=== PATIENT | male | born 1960 | race Caucasian/White ===

== ENCOUNTER 2020-05-04 07:59 | Day surgery (SDC) | payer OTHER ==
[2020-05-02 09:56] VITALS: BMI 30.4
[~2020-05-04 07:59] MED LIST: LACTATED RINGERS 1,000 ML IV SCH; LIDOCAINE 1% (10MG/ML) FOR IV START INTRADERMA PRN
[2020-05-04 08:26] VITALS: TEMP 98
[2020-05-04] MEDS ORDERED: PROPOFOL 10 MG/ML 20 ML VIAL IV ONE (09:02)
--- NOTE | 2020-05-04 09:25 | P.PCN ---
Date of Procedure: 05/04/20 Procedure(s) Performed: BRIEF HISTORY: Patient is a 59-year-old pleasant white male scheduled for an elective colonoscopy as a part of screening for colorectal neoplasia. Last colonoscopy was 12 years ago. PROCEDURE PERFORMED: Colonoscopy with snare polypectomy and biopsy. PREOPERATIVE DIAGNOSIS: Screening for colon cancer. IV sedation per Anesthesia. PROCEDURE: After informed consent was obtained, the patient, was brought into the endoscopy unit. IV sedation was administered by Anesthesia under continuous monitoring. Digital rectal examination was normal. Initially the Olympus CF-160 flexible video colonoscope was then inserted in the rectum, gradually advanced into the cecum without any difficulty. Careful examination was performed as the scope was gradually being withdrawn. Ileocecal valve and the appendiceal orifice were visualized and appeared normal. Prep was excellent. In the base of the cecum there was a 3 cm broad-based polypoid lesion identified and part of the polyp was removed. Subsequently there was an ulceration noted on the polyp behind a fold and hence the polyp could not be completely removed and multiple biopsies were performed to rule out malignancy. In the ascending colon there was a 5 mm polyp that was removed by snare polypectomy. Rest of the transverse colon, descending colon, sigmoid colon, and rectum appeared normal. Retroflexion was performed in the rectum and no lesions were seen. The patient tolerated the procedure well. IMPRESSION: 3 cm broad-based polypoid lesion with central ulceration in the base of the cecum suspicious for malignancy, status post partial snare polypectomy followed by biopsy 5 mm ascending colon polyp status post polypectomy RECOMMENDATIONS: Findings of this examination were discussed with the patient as well as his family. He was advised to follow with the biopsy results. He will be seen in office in 1 week to discuss biopsy results and plans accordingly.
[2020-05-04 09:27] VITALS: RESP 17
[2020-05-04 09:35] VITALS: BP 130/86; PULSE 74
== END 2020-05-04 09:57 | disposition home or self-care (01) ==
LOC: ORWHC2ENDO 07:59
PROVIDERS: ATTEND Internal Medicine Gastroenterology
DX: Z12.11 Encounter for screening for malignant neoplasm of colon (principal); C18.0 Malignant neoplasm of cecum; K63.5 Polyp of colon; K63.3 Ulcer of intestine; E11.9 Type 2 diabetes mellitus without complications; I10 Essential (primary) hypertension; E78.5 Hyperlipidemia, unspecified; Z88.8 Allergy status to other drugs, medicaments and biological substances; Z79.899 Other long term (current) drug therapy; Z98.890 Other specified postprocedural states; Z87.898 Personal history of other specified conditions
CPT/HCPCS: 88305; 45380; 45385; J2704

== ENCOUNTER → 2020-05-10 | Outpatient (CLI) | payer OTHER ==
--- NOTE | 2020-05-10 14:31 | CT ---
EXAMINATION TYPE: CT ChestAbdPelvis w con DATE OF EXAM: 05/10/2020 COMPARISON: None HISTORY: 59-year-old male Adenocarcinoma of the cecum TECHNIQUE: Contiguous axial scanning of the chest, abdomen, and pelvis performed with IV Contrast, pa tient injected with 100 mL of Isovue 300. Delayed images through the kidneys were obtained. Coronal/s agittal reconstructions performed. CT DLP: 1145.6 mGycm Automated exposure control for dose reduction was used. FINDINGS: CHEST: The heart is upper limits of normal size without pericardial effusion. Aorta normal caliber with conventional arch vessel branching anatomy. Scattered nonenlarged mediastinal lymph nodes. No thoracic lymphadenopathy by CT size criteria. Lungs show no consolidation or pleural effusion. No suspicious pulmonary nodules are identified. ABDOMEN: Small hiatal hernia. Tiny 7 mm posterior right liver lobe hypodensity is nonspecific, axial image 55. No other focal liver lesion. Portal venous system is patent. No biliary ductal dilatation. Gallbladder, adrenal glands, right kidney, spleen with inferior splenule, and pancreas appear within normal limits. Parapelvic cysts within the left kidney measuring up to 2.2 cm. No dilated small bowel, free fluid, free air. Normal appendix. There is soft tissue thickening measuring approximately 2.8 cm on sagittal image 18 at the inferior c ecum near the base of the appendix and extending towards the ileocecal valve region. No significant s tool burden. Oral contrast progressed to the mid rectum. Moderate stool within the rectum. Mild diver ticular change along the proximal sigmoid. No pericolonic inflammatory change. There is a single adjacent 7 mm right lower quadrant mesenteric lymph node, axial image 82 and yancey l image 46 located posterior and inferior to the cecum. Otherwise, no mesenteric or retroperitoneal l ymphadenopathy seen. PELVIS: Bladder urine distended. Prostate gland is enlarged at 5.0 cm wide. No abnormal fluid collection in t he pelvis or pelvic lymphadenopathy. BONES: Degenerative changes right SI joint. Transitional lumbosacral segment. Severe degenerative disc disea se L4-L5. Additional moderate to severe degenerative disc disease T12-L1 and L1-L2. Grade 1 retrolist hesis at L1-L2. Anterior endplate spondylosis midthoracic spine. No osseous destructive process seen. IMPRESSION: 1. AREA OF 2.8 CM MURAL BASED THICKENING AT THE INFERIOR CECUM NEAR THE BASE OF THE APPENDIX AND EXTE NDING TOWARD THE ILEOCECAL VALVE REGION. FINDINGS LIKELY CORRESPOND TO THE PATIENT'S BIOPSY PROVEN CE RUBIO CARCINOMA. 2. THERE IS A SINGLE ADJACENT 7 MM NONSPECIFIC RIGHT LOWER QUADRANT MESENTERIC LYMPH NODE LOCATED POS TERIOR AND INFERIOR TO THE CECUM. THIS MAY BE REACTIVE. 3. ADDITIONAL NONSPECIFIC TINY, INDETERMINATE, 7 MM HYPODENSE LESION POSTERIOR RIGHT LIVER LOBE. FOLL OW-UP RECOMMENDED.
== END | disposition home or self-care (01) ==
LOC: RADCTMAIN 10:18
PROVIDERS: ATTEND Internal Medicine Gastroenterology
DX: C18.0 Malignant neoplasm of cecum (principal); R59.0 Localized enlarged lymph nodes
CPT/HCPCS: 71260; 74177; Q9967

== ENCOUNTER → 2020-06-04 | Outpatient (CLI) | payer OTHER ==
[2020-06-04 08:45] LABS: HCT 45.6 % (39.0-53.0); HGB 14.9 gm/dL (13.0-17.5); MCH 28.6 pg (25.0-35.0); MCHC 32.7 g/dL (31.0-37.0); MCV 87.4 fL (80.0-100.0); Mean Platelet Volume 6.6; Platelet Count 190 k/uL (150-450); RBC 5.22 m/uL (4.30-5.90); RDW 12.7 % (11.5-15.5); WBC 5.2 k/uL (3.8-10.6)
[2020-06-04 08:56] LABS: Potassium 3.9 mmol/L (3.5-5.1)
== END | disposition home or self-care (01) ==
LOC: LABPAT 07:48
PROVIDERS: ATTEND Surgery
DX: Z01.818 Encounter for other preprocedural examination (principal); C18.9 Malignant neoplasm of colon, unspecified
CPT/HCPCS: 36415; 80051; 85027

== ENCOUNTER 2020-06-11 09:49 | Inpatient (IN) | payer OTHER ==
[2020-06-07 15:39] VITALS: BMI 28.8
[~2020-06-11 09:49] MED LIST changes: +ACETAMINOPHEN TAB 500 MG TAB PO ONE; +DEXAMETHASONE SOD PHOSPHATE 10 MG/ML 1 ML VIAL IV ONE; +HEPARIN SODIUM,PORCINE 5,000 UNIT/ML 1 ML VIAL SQ ONE; +HYDROmorphone 0.5 MG/0.5 ML SYRINGE IVP PRN; -LACTATED RINGERS 1,000 ML IV SCH; -LIDOCAINE 1% (10MG/ML) FOR IV START INTRADERMA PRN; +SCOPOLAMINE 1.5MG/72HR PATCH TRANSDERM ONE; +metroNIDAZOLE-NS PMX 500 MG in SALINE 1 100ML.BAG IVPB ONE
[2020-06-11] MEDS ORDERED: LIDOCAINE 1% (10MG/ML) FOR IV START INTRADERMA ONE (10:45)
[2020-06-11] MEDS ORDERED: ONDANSETRON 4 MG/2 ML VIAL ONE ×2 (10:52→11:49)
[2020-06-11] MEDS ORDERED: DEXAMETHASONE SOD PHOSPHATE 10 MG/ML 1 ML VIAL IV ONE (10:59)
[2020-06-11] MEDS ORDERED: ONDANSETRON 4 MG/2 ML VIAL IVP ONE (11:00)
[2020-06-11] MEDS ORDERED: ALVIMOPAN 12 MG CAPSULE PO ONE (11:14)
[2020-06-11] MEDS ORDERED: LIDOCAINE 1% INJ 10MG/ML (20 ML MDV) ONE (11:49)
[2020-06-11] MEDS ORDERED: ePHEDrine SULFATE/0.9% NACL/PF 50 MG/5 ML SYRINGE IV ONE (11:49)
[2020-06-11] MEDS ORDERED: PROPOFOL 10 MG/ML 20 ML VIAL IV ONE (11:49)
[2020-06-11] MEDS ORDERED: WATER FOR INJECTION, STERILE 10 ML VIAL IV ONE (11:49)
[2020-06-11] MEDS ORDERED: PHENYLEPHRINE-0.9% NACL SYG 1 MG/10 ML SYRINGE ONE (11:49)
[2020-06-11] MEDS ORDERED: ROCURONIUM BROMIDE 10 MG/ML 5 ML VIAL IV ONE (11:49)
[2020-06-11] MEDS ORDERED: NEOSTIGMINE 1 MG/ML 10 ML VIAL ONE (11:49)
[2020-06-11] MEDS ORDERED: fentaNYL (PF) 50 MCG/ML 2 ML AMP ONE (11:49)
[2020-06-11] MEDS ORDERED: MIDAZOLAM 2 MG/2 ML VIAL ONE (11:49)
[2020-06-11] MEDS ORDERED: SUCCINYLCHOLINE CHLORIDE 100 MG/5 ML SYR IV ONE (11:49)
[2020-06-11] MEDS ORDERED: GLYCOPYRROLATE 0.2 MG/ML 2 ML VIAL ONE (11:49)
[2020-06-11] MEDS: LACTATED RINGERS 1,000 ML IV SCH (11:51)
[2020-06-11] MEDS ORDERED: BUPIVACAINE (PF) 0.25% 30 ML VIAL SQ ONE ×2 (12:19)
[2020-06-11] MEDS ORDERED: LACTATED RINGERS 1,000 ML IV ONE ×2 (13:12→15:23)
[2020-06-11] MEDS ORDERED: METOCLOPRAMIDE 5 MG/ML 2 ML VIAL IVP PRN (15:49)
[2020-06-11] MEDS ORDERED: ONDANSETRON 4 MG/2 ML VIAL IVP PRN (15:49)
--- NOTE | 2020-06-11 15:55 | P.OP ---
Date of Procedure: 06/11/20 Procedure(s) Performed: PREOPERATIVE DIAGNOSIS: Right-sided colon cancer POSTOPERATIVE DIAGNOSIS: Same PROCEDURE: Laparoscopic da Vic assisted right colectomy with intracorporeal anastomosis SURGEON: Lamar EBL: Minimal see anesthesia records ANESTHESIA: General COMPLICATIONS: None OPERATIVE PROCEDURE: Patient was placed on the operating table in the supine position. The patient was placed under general anesthesia. A Cobb catheter was placed. The patient's arms were tucked. The abdomen was prepped and draped in usual sterile fashion. A small Pfannenstiel incision was created in the midline. The subcutaneous fat and fascia were divided horizontally using electrocautery. The rectus muscle was divided vertically using blunt dissection and entrance into the peritoneal cavity occurred. The Galdino lap cap was placed. Through the GelPort adapter of the Galdino a 12 mm robotic port and a 12 mm assist port were placed. Full insufflation took place to 15 mmHg. 3 additional trochars were placed for the robot a 12 mm in the left subcostal a 8 mm in the left lateral infraumbilical and a 8 mm trocar in the left lower quadrant location. The patient was placed in Trendelenburg right side up. The liver was free of any evidence of distant metastasis. The retroperitoneum was evaluated. The ileocolic pedicle was identified by retracting the cecum anteriorly and laterally. Careful dissection using both blunt dissection and cautery took place in the retroperitoneum. The duodenum was quickly identified and this was protected throughout the remainder of the procedure. Our dissection took place laterally and circumferentially around the ileocolic pedicle. The ileocolic pedicle was divided using a 60 white load stapler. Dissection in the retroperitoneum and took place bluntly. Once we reached the lateral abdomen from our retroperitoneal approach the ileum cecum and ascending colon were mobilized by incising the lateral peritoneal attachments. We entered into a retroperitoneal dissection plane. The ureter was visualized and protected throughout the case. The hepatic flexure was mobilized in a similar fashion although in that location we started using the vessel sealer. The gastrocolic omentum was dissected away from the proximal transverse colon. Once we were able to visualize the transverse colon and hepatic flexure well the transverse colon was divided using a blue load 60 stapler. The mesentery of the transverse colon was then divided using the vessel sealer as well. The small bowel was divided as well using a robotic blue load stapler. At this point our specimen was free and placed in the left upper quadrant. The terminal ileum was brought in an isoperistaltic manner adjacent to the transverse colon. 2 separate 3-0 GI silk stay sutures were placed proximally and distally. Small enterotomy and colotomy took place. At that time stapler was fired along the antimesenteric border of both the small bowel and the colon. A single firing of the 60 mm blue load stapler was utilized. We had an adequate opening between the small bowel and colon at that point. The defect was closed transversely using a running full-thickness 20V lock suture. Once the defect was closed I used a running horizontal mattress Lambert suture along the length of the staple line in order to imbricate that area. The previously placed 3-0 GI silk sutures acted as stay sutures proximally and distally. The specimen was grasped through the Galdino assist port and the pneumoperitoneum was evacuated. The specimen was able to be retrieved quite easily. The fascia was closed using a running 0 Vicryl suture. The 12 mm trocar site fascia was closed using a [id number] 0 Vicryl suture. The subcutaneous tissues were irrigated with saline. The subcutaneous tissues were closed using 3-0 Vicryl sutures. The skin at all locations were closed using 4-0 Monocryl sutures. Dermabond was then utilized. Sterile dressings were applied. DISPOSITION: Stable to recovery room
[2020-06-11] MEDS ORDERED: HYDROmorphone 1 MG/ML 1 ML SYRINGE IVP PRN (17:33)
[2020-06-11] MEDS ORDERED: HYDROcodone/APAP 5-325MG 1 EACH TAB PO PRN (17:33)
[2020-06-11] MEDS: HEPARIN SODIUM,PORCINE 5,000 UNIT/ML 1 ML VIAL SQ SCH (17:56)
[2020-06-11] MEDS: D5-0.45% NACL WITH KCL 20MEQ/L 1,000 ML IV SCH (18:00)
[2020-06-11] MEDS: ACETAMINOPHEN IV (For NPO) 1,000 MG in EMPTY BAG 1 BAG IVPB SCH (19:20)
[2020-06-11 20:28] LABS: Basophils % (A) 0 %; Eosinophils % (A) 0 %; HGB 15.1 gm/dL (13.0-17.5); Lymphocytes # (A) 0.8 k/uL (1.0-4.8); Lymphocytes % (A) 7 %; MCH 28.7 pg (25.0-35.0); MCHC 32.9 g/dL (31.0-37.0); MCV 87.3 fL (80.0-100.0); Mean Platelet Volume 6.7; Monocytes # (A) 0.4 k/uL (0-1.0); Monocytes % (A) 4 %; Neutrophils # (A) 9.3 k/uL (1.3-7.7); Neutrophils % (A) 88 %; Platelet Count 207 k/uL (150-450); RBC 5.27 m/uL (4.30-5.90); RDW 12.7 % (11.5-15.5); WBC 10.5 k/uL (3.8-10.6)
[2020-06-11 20:37] LABS: Calcium 8.6 mg/dL (8.4-10.2); Potassium 3.9 mmol/L (3.5-5.1)
[2020-06-11] MEDS: FAMOTIDINE 20 MG/2 ML VIAL IV SCH (20:57)
[2020-06-11] MEDS: ALVIMOPAN 12 MG CAPSULE PO SCH (20:57)
[2020-06-11] MEDS: METOPROLOL TARTRATE 50 MG TAB PO SCH (20:57)
[2020-06-11] MEDS: MONTELUKAST 10 MG TAB PO SCH (20:57)
[2020-06-11] MEDS: ATORVASTATIN 10 MG TAB PO SCH (20:57)
[2020-06-11] MEDS ORDERED: amLODIPine 5 MG TAB PO SCH (21:00)
--- NOTE | 2020-06-11 22:14 | P.CONS ---
History of Present Illness - Reason for Consult Consult date: 06/11/20 medical management Requesting physician: Miguel Newton - Chief Complaint abdominal surgery - History of Present Illness Consultation: This is a 60-year-old patient of Dr. Jacob. Was chronic stable medical conditions include hyperlipidemia, hypertension, seasonal ALLERGIES. On May 04 patient underwent colonoscopy by Dr. Natali Yang. Found 03 cm broad-based polypoid lesion with central ulceration the base of the cecum. Snare polypectomy was carried out. Pathology came back showing superficially invasive adenocarcinoma in a tubular adenoma. Computed tomography scan of the abdomen which is pelvis showed some nonspecific findings and arthritic finding speech in the lumbosacral spine. Large prostate. Today patient underwent right hemicolectomy. Patient's currently on clear liquids. Pain is controlled. Review of systems: GEN.: None EYES: None HEENT: None NECK: None RESPIRATORY: None CARDIOVASCULAR: None GASTROINTESTINAL: As above] GENITOURINARY: None MUSCULOSKELETAL: None LYMPHATICS: None HEMATOLOGICAL: None PSYCHIATRY: None NEUROLOGICAL: None Past medical history to include: Malignant polyp invasive adenocarcinoma, obstructive colon, hypertension, hyperlipidemia, seasonal ALLERGIES. Social history: . 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 Alcohol occasional. No smoking Physical examination: VITAL SIGNS: 98.1, 86, 18, 1:30 dose any 2, 77% on 2 L GENERAL: [BMI 29.1, sitting on bed, comfortable. EYES: Pupils equal. Conjunctiva normal. HEENT: External appearance of nose and ears normal, oral cavity grossly normal. NECK: JVD not raised; masses not palpable. HEART: First and second heart sounds are normal; no edema. LUNGS: Respiratory rate normal; clear to auscultation. ABDOMEN: Soft, tender, dressing in place, liver spleen not palpable, no masses palpable. PSYCH: Alert and oriented x3; mood and affect normal. NEUROLOGICAL: Cranial nerves grossly intact; no facial asymmetry, power and sensation grossly intact. LYMPHATICS: No lymph nodes palpable in the axilla and neck INVESTIGATIONS, reviewed in the clinical context: White count 10.5 hemoglobin 13.1 potassium 3.9 creatinine 1.21 Assessment: -Right colonic polyp, invasive adenocarcinoma in in a tubular adenoma. No resulting in right hemicolectomy -Hyperlipidemia -Essential hypertension -Seasonal ALLERGIES Plan: Home medications and resume. Patient to clear liquid diet. Activity as tolerated. Care was discussed with the patient question also. Venodyne boots. Thank you Dr. Vergara Past Medical History Past Medical History: Cancer, Hyperlipidemia, Hypertension, Osteoarthritis (OA) Additional Past Medical History / Comment(s): SEASONAL ALLERGIES, COLON CANCER History of Any Multi-Drug Resistant Organisms: None Reported Past Surgical History: Tonsillectomy Additional Past Surgical History / Comment(s): COLONOSCOPY, right colectomy Past Anesthesia/Blood Transfusion Reactions: Motion Sickness Past Psychological History: No Psychological Hx Reported Smoking Status: Former smoker Past Alcohol Use History: Occasional Additional Past Alcohol Use History / Comment(s): STARTED SMOKING AT AGE 16 QUIT SMOKING AT AGE 21 SMOKED 1PPD Past Drug Use History: None Reported - Past Family History Mother Family Medical History: Cancer Additional Family Medical History / Comment(s): BREAST CANCER Medications and Allergies Home Medications Medication Instructions Recorded Confirmed Type Losartan Potassium [Cozaar] 100 mg PO DAILY 05/02/20 06/11/20 History Lovastatin [Mevacor] 40 mg PO HS 05/02/20 06/07/20 History Metoprolol Tartrate [Lopressor] 50 mg PO BID 05/02/20 06/11/20 History Montelukast [Singulair] 10 mg PO HS 05/02/20 06/07/20 History amLODIPine [Norvasc] 5 mg PO BID 05/02/20 06/11/20 History Fluticasone Nasal [place] [Flonase 1 - 2 spray EA NOSTRIL DAILY PRN 06/07/20 06/11/20 History Nasal [place]] Allergies Allergy/AdvReac Type Severity Reaction Status Date / Time No Known Allergies Allergy Verified 06/11/20 10:42 Physical Exam Vitals: Vital Signs Temp Pulse Pulse Pulse Resp BP Pulse Ox 06/11/20 19:16 16 06/11/20 18:57 98.1 F 86 16 138/72 97 06/11/20 18:05 95 126/77 98 06/11/20 17:49 81 125/74 94 L 06/11/20 17:34 78 128/75 98 06/11/20 17:19 84 125/77 95 06/11/20 17:00 71 14 126/71 97 06/11/20 16:45 76 14 129/76 95 06/11/20 16:30 77 14 124/76 97 06/11/20 16:15 78 18 121/74 96 06/11/20 16:05 81 16 137/84 97 06/11/20 15:50 98.1 F 71 16 105/68 99 06/11/20 10:33 137/88 06/11/20 10:32 97.7 F 65 17 97 Intake and Output 06/11/20 06/11/20 06/11/20 06:59 14:59 22:59 Intake Total 2150 200 Output Total 1450 Balance 2150 -1250 Intake: IV 2150 200 Output: Urine 1420 Estimated Blood Loss 30 Other: Voiding Method Indwelling Catheter Weight 86.7 kg 86.7 kg Results CBC & Chem 7: 06/11/20 20:14 06/11/20 20:14 Labs: Abnormal Lab Results - Last 24 Hours (Table) 06/11/20 06/11/20 Range/Units 20:14 20:14 Neutrophils # 9.3 H (1.3-7.7) k/uL Lymphocytes # 0.8 L (1.0-4.8) k/uL Sodium 135 L (137-145) mmol/L Glucose 157 H (74-99) mg/dL
[2020-06-12] MEDS: ACETAMINOPHEN IV (For NPO) 1,000 MG in EMPTY BAG 1 BAG IVPB SCH ×3 (00:49→12:23)
[2020-06-12] MEDS: HEPARIN SODIUM,PORCINE 5,000 UNIT/ML 1 ML VIAL SQ SCH ×4 (00:50→23:25)
[2020-06-12] MEDS: D5-0.45% NACL WITH KCL 20MEQ/L 1,000 ML IV SCH ×3 (00:50→19:43)
[2020-06-12] MEDS: LACTATED RINGERS 1,000 ML IV SCH (02:57)
[2020-06-12] MEDS: METOPROLOL TARTRATE 50 MG TAB PO SCH ×2 (08:12→20:24)
[2020-06-12] MEDS: ALVIMOPAN 12 MG CAPSULE PO SCH ×2 (08:12→20:19)
[2020-06-12] MEDS: LOSARTAN 50 MG TAB PO SCH (08:13)
[2020-06-12] MEDS: FAMOTIDINE 20 MG/2 ML VIAL IV SCH (08:13)
[2020-06-12] MEDS ORDERED: ACETAMINOPHEN TAB 325 MG TAB PO PRN (13:26)
--- NOTE | 2020-06-12 17:27 | P.PN ---
Progress Note - Text Progress Note Date: 06/12/20 - Chief Complaint abdominal surgery Consultation: This is a 60-year-old patient of Dr. Jacob. Was chronic stable medical conditions include hyperlipidemia, hypertension, seasonal ALLERGIES. On May 04 patient underwent colonoscopy by Dr. Natali Yang. Found 03 cm broad-based polypoid lesion with central ulceration the base of the cecum. Snare polypectomy was carried out. Pathology came back showing superficially invasive adenocarcinoma in a tubular adenoma. Computed tomography scan of the abdomen which is pelvis showed some nonspecific findings and arthritic finding speech in the lumbosacral spine. Large prostate. underwent right hemicolectomy. Today-advanced to full liquids this morning. Patient controlled. No nausea vomiting. Slight flatus. Review of systems: Was done for constitutional, cardiovascular, GI, pulmonary. relevant finding as above Active Medications Acetaminophen (Acetaminophen Tab 325 Mg Tab) 650 mg PO Q4HR PRN PRN Reason: Fever and/ or Mild Pain Hydrocodone Bitart/Acetaminophen (Hydrocodone/Apap 5-325mg 1 Each Tab) 1 each PO Q4HR PRN PRN Reason: Pain Alvimopan (Alvimopan 12 Mg Capsule) 12 mg PO BID [facility] Stop: 06/18/20 09:01 Last Admin: 06/12/20 08:12 Dose: 12 mg Documented by: Atorvastatin Calcium (Atorvastatin 10 Mg Tab) 10 mg PO HS [facility] Last Admin: 06/11/20 20:57 Dose: 10 mg Documented by: Famotidine (Famotidine 20 Mg Tab) 20 mg PO BID [facility] Heparin Sodium (Porcine) (Heparin Sodium,Porcine 5,000 Unit/Ml 1 Ml Vial) 5,000 unit SQ Q8HR [facility] Last Admin: 06/12/20 08:13 Dose: 5,000 unit Documented by: Hydromorphone HCl (Hydromorphone 1 Mg/Ml 1 Ml Syringe) 1 mg IVP Q3HR PRN PRN Reason: Pain Lactated Ringer's (Lactated Ringers) 1,000 mls @ 20 mls/hr IV .Q24H [facility] Last Admin: 06/12/20 02:57 Dose: Not Given Documented by: Potassium Chloride/Dextrose/Sod Cl (D5%-1/2ns-Kcl 20 Meq/L Iv Solution) 1,000 mls @ 125 mls/hr IV .Q8H [facility] Last Admin: 06/12/20 12:24 Dose: 125 mls/hr Documented by: Ketorolac Tromethamine (Ketorolac 15 Mg/Ml 1 Ml Vial) 15 mg IVP Q6HR [facility] Stop: 06/17/20 18:01 Losartan Potassium (Losartan 50 Mg Tab) 100 mg PO DAILY [facility] Last Admin: 06/12/20 08:13 Dose: 100 mg Documented by: Metoclopramide HCl (Metoclopramide 5 Mg/Ml 2 Ml Vial) 10 mg IVP Q6HR PRN PRN Reason: Nausea and Vomiting Metoprolol Tartrate (Metoprolol Tartrate 50 Mg Tab) 50 mg PO BID [facility] Last Admin: 06/12/20 08:12 Dose: 50 mg Documented by: Montelukast Sodium (Montelukast 10 Mg Tab) 10 mg PO HS [facility] Last Admin: 06/11/20 20:57 Dose: 10 mg Documented by: Ondansetron HCl (Ondansetron 4 Mg/2 Ml Vial) 4 mg IVP Q8HR PRN PRN Reason: Nausea And Vomiting Physical examination: VITAL SIGNS: 97.9, 64, 16, 135/74, 96% room air GENERAL: Propped up in bed, comfortable. EYES: Pupils equal. Conjunctiva normal. HEENT: External appearance of nose and ears normal, oral cavity grossly normal. NECK: JVD not raised; masses not palpable. HEART: First and second heart sounds are normal; no edema. LUNGS: Respiratory rate normal; clear to auscultation. ABDOMEN: Soft, tender, no guarding rigidity, dressing in place, liver spleen not palpable, no masses palpable. PSYCH: Alert and oriented x3; mood and affect normal. INVESTIGATIONS, reviewed in the clinical context: White count 10.5 hemoglobin 13.1 potassium 3.9 creatinine 1.21 Assessment: -Right colonic polyp, invasive adenocarcinoma in in a tubular adenoma. Leading to in right hemicolectomy -Hyperlipidemia -Essential hypertension -Seasonal ALLERGIES Plan: Continue current medication treatment plan. Advanced to full liquid diet. Patient has been out of bed. Encouraged to increase activity. Thank you Dr. Vergara
--- NOTE | 2020-06-12 17:49 | P.PN ---
Subjective Progress Note Date: 06/12/20 Principal diagnosis: Colon cancer Patient seen in the hallway well up ambulating. Doing well today. Minimal pain. Some abdominal cramps. He is passing flatus. Labs noted. White blood cell count and hemoglobin normal. Objective - Vital Signs Vital signs: Vital Signs Temp 97.9 F 06/12/20 14:15 Pulse 64 06/12/20 14:15 Resp 16 06/12/20 14:15 BP 135/74 06/12/20 14:15 Pulse Ox 96 06/12/20 14:15 Intake & Output 06/11/20 06/12/20 06/12/20 18:59 06:59 18:59 Intake Total 2350 Output Total 450 3100 1950 Balance 1900 -3100 -1950 Weight 86.7 kg Intake: IV 2350 Output: Urine 420 3100 1950 Estimated Blood Loss 30 Other: Voiding Method Indwelling Catheter Urinal # Voids 1 - Exam Abdomen: Soft, mild distention, mild tenderness, dressing clean and dry - Labs CBC & Chem 7: 06/11/20 20:14 06/11/20 20:14 Labs: Abnormal Lab Results - Last 24 Hours (Table) 06/11/20 06/11/20 Range/Units 20:14 20:14 Neutrophils # 9.3 H (1.3-7.7) k/uL Lymphocytes # 0.8 L (1.0-4.8) k/uL Sodium 135 L (137-145) mmol/L Glucose 157 H (74-99) mg/dL Assessment and Plan (1) Cancer of colon Narrative/Plan: Patient doing well today. He would like to avoid any narcotics. We will add Toradol for pain control. Continue ambulation. Continue full liquids. Ree valuate tomorrow. Current Visit: Yes Status: Acute Code(s): C18.9 - MALIGNANT NEOPLASM OF COLON, UNSPECIFIED SNOMED Code(s): 361121420
[2020-06-12] MEDS: KETOROLAC 15 MG/ML 1 ML VIAL IVP SCH ×2 (18:18→23:25)
[2020-06-12] MEDS: FAMOTIDINE 20 MG TAB PO SCH (20:19)
[2020-06-12] MEDS: ATORVASTATIN 10 MG TAB PO SCH (20:19)
[2020-06-12] MEDS: MONTELUKAST 10 MG TAB PO SCH (20:24)
[2020-06-13] MEDS: D5-0.45% NACL WITH KCL 20MEQ/L 1,000 ML IV SCH ×2 (00:40→23:54)
[2020-06-13] MEDS: LACTATED RINGERS 1,000 ML IV SCH (05:23)
[2020-06-13] MEDS: KETOROLAC 15 MG/ML 1 ML VIAL IVP SCH ×4 (05:52→23:53)
[2020-06-13 06:12] LABS: Basophils # (A) 0.1 k/uL (0-0.2); Basophils % (A) 1 %; Eosinophils # (A) 0.5 k/uL (0-0.7); Eosinophils % (A) 6 %; HCT 42.8 % (39.0-53.0); HGB 13.8 gm/dL (13.0-17.5); Lymphocytes # (A) 2.5 k/uL (1.0-4.8); Lymphocytes % (A) 31 %; MCH 28.2 pg (25.0-35.0); MCHC 32.2 g/dL (31.0-37.0); MCV 87.6 fL (80.0-100.0); Mean Platelet Volume 6.7; Monocytes # (A) 0.7 k/uL (0-1.0); Monocytes % (A) 8 %; Neutrophils # (A) 4.3 k/uL (1.3-7.7); Neutrophils % (A) 53 %; Platelet Count 166 k/uL (150-450); RBC 4.89 m/uL (4.30-5.90); RDW 12.6 % (11.5-15.5); WBC 8.1 k/uL (3.8-10.6)
[2020-06-13] MEDS: HEPARIN SODIUM,PORCINE 5,000 UNIT/ML 1 ML VIAL SQ SCH ×3 (08:43→23:53)
[2020-06-13] MEDS: FAMOTIDINE 20 MG TAB PO SCH ×2 (08:44→21:10)
[2020-06-13] MEDS: METOPROLOL TARTRATE 50 MG TAB PO SCH ×2 (08:44→21:09)
[2020-06-13] MEDS: LOSARTAN 50 MG TAB PO SCH (08:44)
[2020-06-13 09:03] LABS: African American GFR (CKD) 82.9 (60.0-200.0); Anion Gap 8.6 mmol/L (4.00-12.00); BUN/Creat Ratio 12.73 Ratio (12.00-20.00); Calcium 8.7 mg/dL (8.7-10.3); Carbon Dioxide 28.4 mmol/L (21.6-31.8); Non-African American GFR(CKD) 71.6 (60.0-200.0); Potassium 3.8 mmol/L (3.5-5.5)
--- NOTE | 2020-06-13 11:13 | P.PN ---
<Dorina Edwards - Last Filed: 06/13/20 11:05> Subjective Progress Note Date: 06/13/20 CHIEF COMPLAINT: Colon cancer HISTORY OF PRESENT ILLNESS: Patient is status post laparoscopic da Vic assisted right colectomy with intracorporeal anastomosis. He is reporting minimal pain about a 2 out of 10. Toradol was added yesterday. Tolerating full liquid diet. Denies any nausea or vomiting. He has been passing gas and having bowel movements. He has been up and ambulating in the hallway. He is afebrile. WBC 8.1 hemoglobin 13.8 PHYSICAL EXAM: VITAL SIGNS: Reviewed. GENERAL: Well-developed in no acute distress. HEENT: No sclera icterus. Extraocular movements grossly intact. Moist buccal mucosa. Head is atraumatic, normocephalic. ABDOMEN: Soft. Mildly distended. Minimal tenderness with palpation. Incision sites clean dry and intact. Lower dressing dressing clean and dry NEUROLOGIC: Alert and oriented. Cranial nerves II through XII grossly intact. ASSESSMENT: 1. Right-sided colon cancer status post laparoscopic da Vic assisted right colectomy with intracorporeal anastomosis. Postop day #2 PLAN: -Continue full liquid diet -Encouraged patient to ambulate -Encourage incentive spirometer use -Continue current pain medications Physician 911 Emergency Dispatcher note has been reviewed by physician. Signing provider agrees with the documented findings, assessment, and plan of care. Objective - Vital Signs Vital signs: Vital Signs Temp 98.1 F 06/13/20 07:00 Pulse 73 06/13/20 07:00 Resp 20 06/13/20 07:52 BP 130/78 06/13/20 07:00 Pulse Ox 96 06/13/20 07:00 Intake & Output 06/12/20 06/13/20 06/13/20 18:59 06:59 18:59 Intake Total 220 Output Total 1950 Balance -1949 220 Intake: Intake, IV Titration 220 Amount D5-0.45% NaCl with KCl 220 20Meq/l 1,000 ml @ 20 mls /hr IV .Q24H [facility] Rx#: [id number] Output: Urine 1950 Other: Voiding Method Urinal Urinal # Voids 1 # Bowel Movements 1 - Labs CBC & Chem 7: 06/13/20 05:36 06/13/20 05:36 <Miguel Newton - Last Filed: 06/13/20 19:26> Subjective As above. Doing well today. Advance diet tomorrow. Anticipate discharge tomorrow. Objective - Vital Signs Vital signs: Vital Signs Temp 98.5 F 06/13/20 14:30 Pulse 67 06/13/20 14:30 Resp 16 06/13/20 16:12 BP 126/82 06/13/20 14:30 Pulse Ox 96 06/13/20 14:30 Intake & Output 06/13/20 06/13/20 06/14/20 06:59 18:59 06:59 Intake Total 220 450 Balance 220 450 Intake: Intake, IV Titration 220 Amount D5-0.45% NaCl with KCl 220 20Meq/l 1,000 ml @ 20 mls /hr IV .Q24H [facility] Rx#: [id number] Oral 450 Other: Voiding Method Urinal # Voids 1 # Bowel Movements 1 - Labs CBC & Chem 7: 06/13/20 05:36 06/13/20 05:36 Assessment and Plan (1) Cancer of colon Current Visit: Yes Status: Acute Code(s): C18.9 - MALIGNANT NEOPLASM OF COLON, UNSPECIFIED SNOMED Code(s): 741093450
--- NOTE | 2020-06-13 20:39 | P.PN ---
Progress Note - Text Progress Note Date: 06/13/20 - Chief Complaint abdominal surgery Consultation: This is a 60-year-old patient of Dr. Jacob. Was chronic stable medical conditions include hyperlipidemia, hypertension, seasonal ALLERGIES. On May 04 patient underwent colonoscopy by Dr. Natali Yang. Found 03 cm broad-based polypoid lesion with central ulceration the base of the cecum. Snare polypectomy was carried out. Pathology came back showing superficially invasive adenocarcinoma in a tubular adenoma. Computed tomography scan of the abdomen which is pelvis showed some nonspecific findings and arthritic finding speech in the lumbosacral spine. Large prostate. underwent right hemicolectomy. Today-tolerating a full liquid diet. Had bowel movement and flatus. Has been ambulating 2. Some abdominal pain. No nausea vomiting. Review of systems: Was done for constitutional, cardiovascular, GI, pulmonary. relevant finding as above Active Medications Acetaminophen (Acetaminophen Tab 325 Mg Tab) 650 mg PO Q4HR PRN PRN Reason: Fever and/ or Mild Pain Hydrocodone Bitart/Acetaminophen (Hydrocodone/Apap 5-325mg 1 Each Tab) 1 each PO Q4HR PRN PRN Reason: Pain Atorvastatin Calcium (Atorvastatin 10 Mg Tab) 10 mg PO HS [facility] Last Admin: 06/12/20 20:19 Dose: 10 mg Documented by: Famotidine (Famotidine 20 Mg Tab) 20 mg PO BID [facility] Last Admin: 06/13/20 08:44 Dose: 20 mg Documented by: Heparin Sodium (Porcine) (Heparin Sodium,Porcine 5,000 Unit/Ml 1 Ml Vial) 5,000 unit SQ Q8HR [facility] Last Admin: 06/13/20 18:08 Dose: 5,000 unit Documented by: Hydromorphone HCl (Hydromorphone 1 Mg/Ml 1 Ml Syringe) 1 mg IVP Q3HR PRN PRN Reason: Pain Lactated Ringer's (Lactated Ringers) 1,000 mls @ 20 mls/hr IV .Q24H [facility] Last Admin: 06/13/20 05:23 Dose: Not Given Documented by: Potassium Chloride/Dextrose/Sod Cl (D5%-1/2ns-Kcl 20 Meq/L Iv Solution) 1,000 mls @ 20 mls/hr IV .Q24H [facility] Last Admin: 06/13/20 00:40 Dose: Not Given Documented by: Ketorolac Tromethamine (Ketorolac 15 Mg/Ml 1 Ml Vial) 15 mg IVP Q6HR [facility] Stop: 06/17/20 18:01 Last Admin: 06/13/20 18:09 Dose: 15 mg Documented by: Losartan Potassium (Losartan 50 Mg Tab) 100 mg PO DAILY [facility] Last Admin: 06/13/20 08:44 Dose: 100 mg Documented by: Metoclopramide HCl (Metoclopramide 5 Mg/Ml 2 Ml Vial) 10 mg IVP Q6HR PRN PRN Reason: Nausea and Vomiting Metoprolol Tartrate (Metoprolol Tartrate 50 Mg Tab) 50 mg PO BID [facility] Last Admin: 06/13/20 08:44 Dose: 50 mg Documented by: Montelukast Sodium (Montelukast 10 Mg Tab) 10 mg PO HS [facility] Last Admin: 06/12/20 20:24 Dose: 10 mg Documented by: Ondansetron HCl (Ondansetron 4 Mg/2 Ml Vial) 4 mg IVP Q8HR PRN PRN Reason: Nausea And Vomiting Physical examination: VITAL SIGNS: 98.5, 67, 17, 126/82, 96% on room air GENERAL: Propped up in bed, comfortable. EYES: Pupils equal. Conjunctiva normal. HEENT: External appearance of nose and ears normal, oral cavity grossly normal. NECK: JVD not raised; masses not palpable. HEART: First and second heart sounds are normal; no edema. LUNGS: Respiratory rate normal; clear to auscultation. ABDOMEN: Soft, tender, no guarding rigidity, dressing in place, liver spleen not palpable, no masses palpable. PSYCH: Alert and oriented x3; mood and affect normal. INVESTIGATIONS, reviewed in the clinical context: White count 8.1 hemoglobin 13.8 potassium 3.8 creatinine 1.1 Assessment: -Right colonic polyp, invasive adenocarcinoma in in a tubular adenoma. Leading to in right hemicolectomy -Hyperlipidemia -Essential hypertension -Seasonal ALLERGIES Plan: On full liquid diet. Ambulating. Diet as per surgery. Discussed with the patient. Thank you Dr. Vergara
[2020-06-13] MEDS: ATORVASTATIN 10 MG TAB PO SCH (21:10)
[2020-06-13] MEDS: MONTELUKAST 10 MG TAB PO SCH (21:10)
[2020-06-14] MEDS: LACTATED RINGERS 1,000 ML IV SCH (05:29)
[2020-06-14] MEDS: KETOROLAC 15 MG/ML 1 ML VIAL IVP SCH ×2 (05:29→11:56)
[2020-06-14 07:46] VITALS: BP 141/83; PULSE 57; RESP 16; TEMP 98.1
[2020-06-14] MEDS: FAMOTIDINE 20 MG TAB PO SCH (08:40)
[2020-06-14] MEDS: HEPARIN SODIUM,PORCINE 5,000 UNIT/ML 1 ML VIAL SQ SCH (08:40)
[2020-06-14] MEDS: LOSARTAN 50 MG TAB PO SCH (08:40)
[2020-06-14] MEDS: METOPROLOL TARTRATE 50 MG TAB PO SCH (08:40)
--- NOTE | 2020-06-14 13:37 | P.DS ---
<Dorina Edwards - Last Filed: 06/14/20 13:34> Providers Expected date of discharge: 06/14/20 Hospital Course: Discharge diagnosis 1. Right-sided colon cancer status post laparoscopic da Vic assisted right colectomy with intracorporeal anastomosis. Hospital course This is a 60-year-old male with a known history of right-sided colon cancer who was admitted to the hospital and underwent laparoscopic da Vic assisted right colectomy with intracorporeal anastomosis. Patient tolerated surgery well. His pain is controlled. He is having bowel movements. He is afebrile. He is tolerating diet. Patient is stable for discharge. Physician Front End [employer]i Developer note has been reviewed by physician. Signing provider agrees with the documented findings, assessment, and plan of care. Patient Condition at Discharge: Stable Plan - Discharge Summary Discharge Rx Participant: Yes New Discharge Prescriptions: New Ibuprofen [Motrin] 600 mg PO Q8HR PRN #30 tab PRN Reason: Pain Acetaminophen Tab [Tylenol Tab] 650 mg PO Q4H PRN #30 tablet PRN Reason: Pain Continue Montelukast [Singulair] 10 mg PO HS Metoprolol Tartrate [Lopressor] 50 mg PO BID Lovastatin [Mevacor] 40 mg PO HS Losartan Potassium [Cozaar] 100 mg PO DAILY Fluticasone Nasal Converse [Flonase Nasal Converse] 1 - 2 spray EA NOSTRIL DAILY PRN PRN Reason: ALLERGY SYMPTOMS Changed amLODIPine [Norvasc] 5 mg PO HS #0 Discharge Medication List Losartan Potassium [Cozaar] 100 mg PO DAILY 05/02/20 [History] Lovastatin [Mevacor] 40 mg PO HS 05/02/20 [History] Metoprolol Tartrate [Lopressor] 50 mg PO BID 05/02/20 [History] Montelukast [Singulair] 10 mg PO HS 05/02/20 [History] Fluticasone Nasal Converse [Flonase Nasal Converse] 1 - 2 spray EA NOSTRIL DAILY PRN 06/07/20 [History] Acetaminophen Tab [Tylenol Tab] 650 mg PO Q4H PRN #30 tablet 06/14/20 [Rx] Ibuprofen [Motrin] 600 mg PO Q8HR PRN #30 tab 06/14/20 [Rx] amLODIPine [Norvasc] 5 mg PO HS #0 06/14/20 [Rx] Follow up Appointment(s)/Referral(s): Miguel Newton MD [Medical Doctor] - 06/21/20 8:45 am Anish Jacob DO [Primary Care Provider] - 1 Week (Office will call you with your appointment date and time.) Patient Instructions/Handouts: Colectomy (DC) Activity/Diet/Wound Care/Special Instructions: No lifting over 10 pounds You may shower. No soaking or tub baths for 2 weeks Very light activity until you are reevaluated at your follow up appointment with your surgeon Diet low fiber Discharge Disposition: HOME SELF-CARE <Miguel Newton - Last Filed: 06/14/20 15:24> Providers Date of admission: 06/11/20 09:49 Attending physician: Miguel Newton Consults: 06/11/20 15:49 Consult Physician Routine Consulting Provider: Dereck Cameron Consult Reason/Comments: Medical management Do you want consulting provider notified?: Yes Primary care physician: Anish Jacob - Discharge Diagnosis(es) (1) Cancer of colon Current Visit: Yes Status: Acute Hospital Course: As above. Patient doing well today. Tolerating diet. May discharge. Follow- up one week. Pathology pending.
--- NOTE | 2020-06-15 21:26 | P.PN ---
Progress Note - Text Progress Note Date: 06/14/20 - Chief Complaint abdominal surgery Consultation: This is a 60-year-old patient of Dr. Jacob. Was chronic stable medical conditions include hyperlipidemia, hypertension, seasonal ALLERGIES. On May 04 patient underwent colonoscopy by Dr. Natali Yang. Found 03 cm broad-based polypoid lesion with central ulceration the base of the cecum. Snare polypectomy was carried out. Pathology came back showing superficially invasive adenocarcinoma in a tubular adenoma. Computed tomography scan of the abdomen which is pelvis showed some nonspecific findings and arthritic finding speech in the lumbosacral spine. Large prostate. underwent right hemicolectomy. Today-tolerated diet. Feeling well. Had a bowel movement. Up and about. Discussed with the patient. Review of systems: Was done for constitutional, cardiovascular, GI, pulmonary. relevant finding as above Current medications reviewed in electronic records Physical examination: VITAL SIGNS: 98.1, 57, 16, 140/83, 98% room air GENERAL: Propped up in bed, comfortable. EYES: Pupils equal. Conjunctiva normal. HEENT: External appearance of nose and ears normal, oral cavity grossly normal. NECK: JVD not raised; masses not palpable. HEART: First and second heart sounds are normal; no edema. LUNGS: Respiratory rate normal; clear to auscultation. ABDOMEN: Soft, tender, no guarding rigidity, dressing in place, liver spleen not palpable, no masses palpable. PSYCH: Alert and oriented x3; mood and affect normal. INVESTIGATIONS, reviewed in the clinical context: White count 8.1 hemoglobin 13.8 potassium 3.8 creatinine 1.1 Assessment: -Right colonic polyp, invasive adenocarcinoma in in a tubular adenoma. Leading to in right hemicolectomy -Hyperlipidemia -Essential hypertension -Seasonal ALLERGIES Plan: Doing well. Continue current medication she plan. Follow-up with his family doctor. Thank you Dr. Vergara
== END 2020-06-14 16:15 | disposition home or self-care (01) | DRG 331 ==
LOC: 2ORMAIN 09:49 → 4SSUR 15:39
PROVIDERS: ADMIT Surgery; ATTEND Surgery
PROC: 8E0W4CZ Robotic Assisted Procedure of Trunk Region, Percutaneous Endoscopic Approach (ICD-10-PCS; principal; 2020-06-11 11:35)
PROC: 0DTF4ZZ Resection of Right Large Intestine, Percutaneous Endoscopic Approach (ICD-10-PCS; principal; 2020-06-11 11:35)
DX: C18.0 Malignant neoplasm of cecum (principal); E78.5 Hyperlipidemia, unspecified; I10 Essential (primary) hypertension; J30.2 Other seasonal allergic rhinitis; M19.90 Unspecified osteoarthritis, unspecified site; E78.00 Pure hypercholesterolemia, unspecified; K44.9 Diaphragmatic hernia without obstruction or gangrene; Z79.899 Other long term (current) drug therapy; Z87.891 Personal history of nicotine dependence; Z98.890 Other specified postprocedural states; Z88.8 Allergy status to other drugs, medicaments and biological substances; Z80.3 Family history of malignant neoplasm of breast; Z82.49 Family history of ischemic heart disease and other diseases of the circulatory system; Z82.0 Family history of epilepsy and other diseases of the nervous system
CPT/HCPCS: 80048; 85025; 86850; 86900; 86901; 88309

== ENCOUNTER → 2020-12-18 | Outpatient (CLI) | payer OTHER ==
--- NOTE | 2020-12-19 08:20 | CT ---
EXAMINATION TYPE: CT abdomen w con DATE OF EXAM: 12/18/2020 COMPARISON: 05/10/2020 HISTORY: F/U for colon ca, large intestine CT DLP: 830.6 mGycm CONTRAST: CT scan of the abdomen is performed with Oral Contrast and with IV Contrast, patient injected with 80 mL of Isovue 300. FINDINGS: LUNG BASES-: No visible nodule. No infiltrate. LIVER/GB: No calcified gallstones. Tiny 7 mm hypoattenuating lesion near the dome of the liver is u nchanged. No lesions are seen. Biliary tree is of normal caliber. PANCREAS: No inflammation. No distinct mass. SPLEEN: No splenic enlargement. No lesion seen. ADRENALS: No nodule. No thickening. KIDNEYS/BLADDER: No hydronephrosis. No nephrolithiasis. No distinct renal mass. Urinary bladder g rossly unremarkable. BOWEL: Interval postsurgical change of right hemicolectomy. Anastomosis appears unremarkable. No evid ence for recurrent or residual mass by CT. No evidence for obstruction leak or abscess. LYMPH NODES: No greater than 1cm abdominal or pelvic lymph nodes are appreciated. AORTA: No significant abnormality. OSSEOUS STRUCTURES: No significant abnormality is seen. OTHER: No significant additional abnormality is seen. IMPRESSION: 1. Postsurgical changes of right hemicolectomy. 2. Stable tiny 7 mm nonspecific hepatic lesion. No new lesions seen.
== END | disposition home or self-care (01) ==
LOC: RADCTMAIN 15:56
PROVIDERS: ATTEND Internal Medicine Hematology & Oncology
DX: Z90.49 Acquired absence of other specified parts of digestive tract (principal)
CPT/HCPCS: 82565; 84520; 74160; 36415; Q9967

== ENCOUNTER 2021-06-11 09:24 | Day surgery (SDC) | payer OTHER ==
[2021-06-06 10:15] VITALS: BMI 29.6
[~2021-06-11 09:24] MED LIST changes: -ACETAMINOPHEN TAB 500 MG TAB PO ONE; -DEXAMETHASONE SOD PHOSPHATE 10 MG/ML 1 ML VIAL IV ONE; -HEPARIN SODIUM,PORCINE 5,000 UNIT/ML 1 ML VIAL SQ ONE; -HYDROmorphone 0.5 MG/0.5 ML SYRINGE IVP PRN; +LACTATED RINGERS 1,000 ML IV SCH; -SCOPOLAMINE 1.5MG/72HR PATCH TRANSDERM ONE; -metroNIDAZOLE-NS PMX 500 MG in SALINE 1 100ML.BAG IVPB ONE
[2021-06-11] MEDS ORDERED: LACTATED RINGERS 1,000 ML IV ONE (09:43)
[2021-06-11 09:44] VITALS: TEMP 97.8
--- NOTE | 2021-06-11 10:38 | P.GSHP ---
History of Present Illness H&P Date: 06/11/21 Chief Complaint: Colon cancer screening, personal history of colon cancer Patient here today for colonoscopy. Underwent laparoscopic right colectomy last April. He no bowel complaints. No change in bowel habits. Past Medical History Past Medical History: Cancer, Hyperlipidemia, Hypertension Additional Past Medical History / Comment(s): SEASONAL ALLERGIES. Hx Colon Cancer 2019. History of Any Multi-Drug Resistant Organisms: None Reported Past Surgical History: Bowel Resection, Tonsillectomy Additional Past Surgical History / Comment(s): COLONOSCOPY, right colectomy. Past Anesthesia/Blood Transfusion Reactions: Motion Sickness Past Psychological History: No Psychological Hx Reported Smoking Status: Former smoker Past Alcohol Use History: Occasional Additional Past Alcohol Use History / Comment(s): QUIT SMOKING AT AGE 21. Past Drug Use History: None Reported - Past Family History Mother Family Medical History: Cancer Additional Family Medical History / Comment(s): BREAST CANCER. Medications and Allergies Home Medications Medication Instructions Recorded Confirmed Type Losartan Potassium [Cozaar] 100 mg PO HS 05/02/20 06/06/21 History Lovastatin [Mevacor] 40 mg PO HS 05/02/20 06/06/21 History Metoprolol Tartrate [Lopressor] 50 mg PO BID 05/02/20 06/06/21 History Montelukast [Singulair] 10 mg PO HS 05/02/20 06/06/21 History amLODIPine [Norvasc] 5 mg PO HS #0 06/14/20 06/06/21 Rx Melatonin 10 mg PO HS 06/06/21 06/06/21 History Allergies Allergy/AdvReac Type Severity Reaction Status Date / Time No Known Allergies Allergy Verified 06/06/21 10:05 Surgical - Exam Vital Signs Temp Pulse Resp BP Pulse Ox 97.8 F 78 18 157/87 99 06/11/21 09:43 06/11/21 09:43 06/11/21 09:43 06/11/21 09:43 06/11/21 09:43 Physical exam: General: Well-developed, well-nourished HEENT: Normocephalic, sclerae nonicteric Abdomen: Nontender, nondistended Extremities: No edema Neuro: Alert and oriented Assessment and Plan (1) Cancer of colon Narrative/Plan: Will proceed with colonoscopy Current Visit: No Status: Acute Code(s): C18.9 - MALIGNANT NEOPLASM OF COLON, UNSPECIFIED SNOMED Code(s): 094175527
[2021-06-11] MEDS ORDERED: PROPOFOL 10 MG/ML 20 ML VIAL IV ONE (10:44)
--- NOTE | 2021-06-11 11:01 | P.PCN ---
Date of Procedure: 06/11/21 Procedure(s) Performed: PREOPERATIVE DIAGNOSIS: Colon cancer screening POSTOPERATIVE DIAGNOSIS: Normal exam PROCEDURE: Colonoscopy ANESTHESIA: MAC SURGEON: Miguel Newton M.D. SPECIMENS: None ENDOSCOPIC PROCEDURE: The patient was placed on the endoscopy table in the left decubitus position. The Olympus colonoscope was inserted into the anus and passed under direct visualization to the ileocolonic anastomosis. The anastomosis was widely patent. From that point the scope was slowly withdrawn inspecting all surfaces carefully. There were no neoplastic inflammatory or polypoid lesions throughout the transverse, descending, sigmoid and rectum. There was no visible diverticulosis noted. Digital rectal examination was normal. The patient was taken to the recovery room in stable condition per anesthesia guidelines. RECOMMENDATIONS: Resume diet. Follow-up colonoscopy 3 years.
[2021-06-11 11:18] VITALS: RESP 16
[2021-06-11 11:39] VITALS: BP 130/79; PULSE 55
== END 2021-06-11 11:40 | disposition home or self-care (01) ==
LOC: ORWHC2ENDO 09:24
PROVIDERS: ATTEND Surgery
DX: Z12.11 Encounter for screening for malignant neoplasm of colon (principal); E78.5 Hyperlipidemia, unspecified; I10 Essential (primary) hypertension; Z80.3 Family history of malignant neoplasm of breast; Z85.038 Personal history of other malignant neoplasm of large intestine; Z87.891 Personal history of nicotine dependence; Z90.49 Acquired absence of other specified parts of digestive tract; Z91.048 Other nonmedicinal substance allergy status
CPT/HCPCS: 45378; J2704

== ENCOUNTER → 2021-06-17 | Outpatient (CLI) | payer OTHER ==
--- NOTE | 2021-06-17 09:40 | CT ---
EXAMINATION TYPE: CT abdomen w con DATE OF EXAM: 06/17/2021 COMPARISON: CT abdomen December 18, 2020 and older study HISTORY: Colon Cancer CT DLP: 948 mGycm, Automated Exposure Control for Dose Reduction was Utilized. CONTRAST: CT scan of the abdomen and pelvis is performed with oral and with IV Contrast, patient injected with 100 mL of Isovue 300. FINDINGS: LUNG BASES: No significant abnormality is appreciated. LIVER/GB: Punctate 4 mm low dense lesion right hepatic lobe axial image 17 is stable presumed benign. No new intrahepatic lesions. PANCREAS: No significant abnormality is seen. SPLEEN: No significant abnormality is seen. ADRENALS: No significant abnormality is seen. KIDNEYS: Extrarenal pelvises bilaterally redemonstrated. Symmetric cortical medullary uptake and excr etion. Some simple appearing parapelvic cysts centrally mid to lower pole of the left kidney redemons trated. Circumaortic left renal vein which is normal variant. BOWEL: Oral contrast reaches level of splenic flexure. No suspicious small or large bowel dilatation. Surgical changes from partial proximal colectomy and small bowel anastomosis redemonstrated. LYMPH NODES: No no greater than 1 cm abdominal lymph nodes are appreciated. OSSEOUS STRUCTURES: Moderate to severe disc space narrowing with endplate sclerosis right L1-L2 level . Grade 1 retrolisthesis L2 on L3 with moderate spurring and disc space narrowing. Advanced disc spac e narrowing lumbosacral junction. OTHER: Small fat-containing umbilical hernia. IMPRESSION: No suspicious new mass or adenopathy to suggest neoplastic recurrence.
== END | disposition home or self-care (01) ==
LOC: RADCTMAIN 08:08
PROVIDERS: ATTEND Internal Medicine Hematology & Oncology
DX: K42.9 Umbilical hernia without obstruction or gangrene (principal); N28.1 Cyst of kidney, acquired; Z85.038 Personal history of other malignant neoplasm of large intestine
CPT/HCPCS: 74160; Q9967

== ENCOUNTER → 2022-08-27 | Outpatient (CLI) | payer OTHER ==
--- NOTE | 2022-08-27 14:32 | CT ---
EXAMINATION TYPE: CT ChestAbdPelvis w con DATE OF EXAM: 08/27/2022 COMPARISON: Prior CT June 17, 2021 and older CTs HISTORY: Follow up for colon CA. Pt has been CA free x2yrs CT DLP: 2303 mGycm. Automated Exposure Control for Dose Reduction was Utilized. CONTRAST: CT scan of the thorax, abdomen and pelvis is performed without oral but with IV Contrast, patient inj ected with 100cc mL of Isovue 300. FINDINGS: LUNGS: The lungs remain grossly clear, there is no concerning new greater than 5 mm parenchymal mass or nodule identified. There is no pleural effusion or pneumothorax seen. The tracheobronchial tree is patent. MEDIASTINUM: There are no greater than 1 cm hilar or mediastinal lymph nodes. No cardiomegaly or pe ricardial effusion is seen. LIVER/GB: Approximate 4 mm low dense lesion right hepatic lobe axial image 64 is stable presumed brendan gn. No new intrahepatic lesions. PANCREAS: No significant abnormality is seen. SPLEEN: No significant abnormality is seen. ADRENALS: No significant abnormality is seen. KIDNEYS: Extrarenal pelvises bilaterally redemonstrated. Symmetric cortical medullary uptake and excr etion. Some simple appearing parapelvic cysts centrally and anteriorly mid to lower pole of the left kidney redemonstrated. Circumaortic left renal vein which is normal variant. BOWEL: No suspicious small or large bowel dilatation. Surgical changes from partial proximal colectom y and small bowel anastomosis redemonstrated in the right abdomen. Genital structures: Enlarged prostate consistent with BPH redemonstrated LYMPH NODES: No new greater than 1 cm abdominal lymph nodes are appreciated. OSSEOUS STRUCTURES: Moderate to severe disc space narrowing with endplate sclerosis L1-L2 level redem onstrated. Grade 1 retrolisthesis L2 on L3 with moderate spurring and disc space narrowing is redemon strated. Advanced disc space narrowing lumbosacral junction is again seen. OTHER: Stable size Small fat-containing umbilical hernia. IMPRESSION: No suspicious new mass or adenopathy to suggest active neoplastic recurrence.
== END | disposition home or self-care (01) ==
LOC: RADCTMAIN 12:28
PROVIDERS: ATTEND Internal Medicine Hematology & Oncology
DX: C18.2 Malignant neoplasm of ascending colon (principal)
CPT/HCPCS: 71260; 74177; Q9967

== ENCOUNTER → 2022-12-26 | Outpatient (CLI) | payer OTHER ==
[2022-12-26 15:21] LABS: HCT 48.4 % (39.6-50.0); MCH 29.3 pg (27.0-32.0); MCHC 33.1 g/dL (32.0-37.0); MCV 88.5 fL (80.0-97.0); Mean Platelet Volume 9.2 fL (9.5-12.2); NRBC Per 100 WBC 0 /100 WBCS (0.0-0.0); Platelet Count 196 X 10*3/uL (140-440); RBC 5.47 X 10*6/uL (4.40-5.60); RDW 12.4 % (11.5-14.5); WBC 5.74 X 10*3/uL (4.50-10.00)
[2022-12-26 15:58] LABS: ALT 36 U/L (10-49); AST 27 U/L (14-35); African American GFR (CKD) 71.5 (60.0-200.0); Albumin 4.5 g/dL (3.8-4.9); Albumin/Globulin Ratio 1.62 (1.60-3.17); Alkaline Phosphatase 83 U/L (41-126); BUN/Creat Ratio 13.17 Ratio (12.00-20.00); Blood Urea Nitrogen 16.2 mg/dL (9.0-27.0); Carbon Dioxide 26.9 mmol/L (20.0-27.5); Chloride 101 mmol/L (96-109); Chol/HDL Ratio 2.96 Ratio; Globulin 2.8 g/dL (1.6-3.3); Glucose 99 mg/dL (70-110); LDL Cholesterol,Calculated 101.9 mg/dL (0.0-131.0); Non-African American GFR(CKD) 61.7 (60.0-200.0); Potassium 4.2 mmol/L (3.5-5.5); Sodium 140 mmol/L (135-145); Total Protein 7.2 g/dL (6.2-8.2)
[2022-12-26 16:36] LABS: Appearance,Urine Clear (Clear); Bilirubin,Urine Negative (Negative); Blood,Urine Negative (Negative); Color,Urine Yellow (Yellow); Ketones,Urine Negative (Negative); Nitrite,Urine Negative (Negative); Specific Gravity,Urine 1.015 (1.001-1.030); Urobilinogen,Urine 0.2 (0.2,1.0)
== END | disposition home or self-care (01) ==
LOC: LABWHC1 09:19
PROVIDERS: ATTEND Family Medicine
DX: Z00.00 Encounter for general adult medical examination without abnormal findings (principal); E66.3 Overweight
CPT/HCPCS: 36415; 80053; 80061; 81003; 82306; 83036; 84153; 84443; 85027

== ENCOUNTER → 2023-06-26 | Outpatient (CLI) | payer OTHER ==
[2023-06-26 15:36] LABS: HCT 47.9 % (39.6-50.0); HGB 16.3 d/dL (13.0-17.0); MCH 30.7 pg (27.0-32.0); MCV 90.2 FL (80.0-97.0); Mean Platelet Volume 9.1 FL (9.5-12.2); NRBC Per 100 WBC 0 X 10*3/uL (0.00-0.01); Platelet Count 202 X 10*3/uL (140-440); RBC 5.31 X 10*6/uL (4.40-5.60); RDW 12.3 % (11.5-14.5); WBC 5.05 X 10*3/uL (4.50-10.00)
[2023-06-26 16:59] LABS: ALT 42 U/L (10-49); AST 49 U/L (14-35); Blood Urea Nitrogen 16.1 mg/dL (9.0-27.0); Calcium 9.3 mg/dL (8.7-10.3); Carbon Dioxide 27.5 mmol/L (21.6-31.8); Chloride 102 mmol/L (96-109); Chol/HDL Ratio 3.44 Ratio; Glucose 96 mg/dL (70-110); LDL Cholesterol,Calculated 104.2 mg/dL (0.0-131.0); Potassium 3.9 mmol/L (3.5-5.5); Sodium 140 mmol/L (135-145)
== END | disposition home or self-care (01) ==
LOC: LABWHC1 09:23
PROVIDERS: ATTEND Family Medicine
DX: I10 Essential (primary) hypertension (principal); E78.00 Pure hypercholesterolemia, unspecified
CPT/HCPCS: 36415; 80048; 80061; 84450; 84460; 85027

== ENCOUNTER → 2023-10-12 | Outpatient (CLI) | payer MEDICARE ==
[2023-10-12 10:13] LABS: African American GFR (CKD) 79 (>60 ml/min/1.73 sqM); Blood Urea Nitrogen 20 mg/dL (9-20); Non-African American GFR(CKD) 68 (>60 ml/min/1.73 sqM)
--- NOTE | 2023-10-12 11:49 | CT ---
EXAMINATION TYPE: CT ChestAbdPelvis w con DATE OF EXAM: 10/12/2023 INDICATION: Hx colon ca, routine follow up COMPARISON: 08/27/2022 CT DLP: 1142 mGycm CONTRAST: Performed with Oral Contrast and with IV Contrast, patient injected with 100 mL of Isovue 300. TECHNIQUE: Axial images at 5 mm thick sections. Reconstructed images in the coronal plane. Delayed images through the kidneys. FINDINGS: CT CHEST: Portion of the thyroid visualized is normal. No suspicious lung nodules or focal infiltrates are present. No enlarged mediastinal or hilar adenopathy is evident. There is a 0.9 cm pretracheal lymph node. The ascending aorta diameter at the level of the main pulmonary artery is 3.8 cm. The main pulmonary artery diameter at the bifurcation is 2.[address] ABDOMEN: Liver: Normal Spleen: Normal Pancreas: Normal Adrenal glands: The adrenal glands are normal. Gallbladder: Normal Kidneys: No masses are evident. No hydronephrosis is present. No cysts are present. Delayed images were obtained through the kidneys, which remain unremarkable. Aorta: Vascular calcification is within the aorta. Inferior vena cava: Normal. CT PELVIS: Loops of bowel within the abdomen and pelvis are normal. There are loops of bowel which are incom pletely distended or lack oral contrast limiting their evaluation. Fecal debris is within the colon. Some increased fecal load may be within the distal colon. No dilated: Small bowel loops are evident. Appendix: Not identified. No dilated tubular structure or inflammatory changes evident. Urinary bladder: Normal. Genitourinary structures: Prostate is prominent. Multiple calcifications are present. Osseous structures: No suspicious lytic or sclerotic lesions. IMPRESSION: 1.
== END | disposition home or self-care (01) ==
LOC: RADCTMAIN 09:25
PROVIDERS: ATTEND Internal Medicine Hematology & Oncology
DX: C18.2 Malignant neoplasm of ascending colon (principal); I70.0 Atherosclerosis of aorta; I10 Essential (primary) hypertension; E78.5 Hyperlipidemia, unspecified; Z71.3 Dietary counseling and surveillance
CPT/HCPCS: 71260; 74177; 82565; 84520

== ENCOUNTER 2024-06-07 12:02 | Day surgery (SDC) | payer MEDICARE ==
[2024-06-07 12:31] VITALS: RESP 16; TEMP 97.8
[2024-06-07] MEDS: LACTATED RINGERS 1,000 ML IV SCH (12:32)
[2024-06-07] MEDS: IV FLUID CONTINUATION 1,000 ML IV ONE (12:33)
[2024-06-07] MEDS ORDERED: PROPOFOL 10 MG/ML 20 ML VIAL IV ONE (13:03)
--- NOTE | 2024-06-07 13:05 | P.GSHP ---
History of Present Illness H&P Date: 06/07/24 Chief Complaint: History of colon cancer, screening 64-year-old male with history of previous right colon cancer. Underwent previous right colectomy. Here today for colonoscopy. Last colonoscopy 3 years ago. Past Medical History Past Medical History: Cancer, Hyperlipidemia, Hypertension Additional Past Medical History / Comment(s): SEASONAL ALLERGIES. Hx Colon Cancer 2019. History of Any Multi-Drug Resistant Organisms: None Reported Past Surgical History: Bowel Resection, Tonsillectomy Additional Past Surgical History / Comment(s): COLONOSCOPY-2020, right colectomy. Past Anesthesia/Blood Transfusion Reactions: Motion Sickness Smoking Status: Former smoker - Past Family History Mother Family Medical History: Cancer Additional Family Medical History / Comment(s): BREAST CANCER. Father Family Medical History: Congestive Heart Failure ([place]), Myocardial Infarction ([place]) Medications and Allergies Home Medications Medication Instructions Recorded Confirmed Type Losartan Potassium [Cozaar] 100 mg PO QAM 05/02/20 05/31/24 History Lovastatin [Mevacor] 40 mg PO HS 05/02/20 05/31/24 History Metoprolol Tartrate [Lopressor] 50 mg PO BID 05/02/20 05/31/24 History Montelukast [Singulair] 10 mg PO HS 05/02/20 05/31/24 History Acetaminophen/Diphenhydramine 1,000 mg PO HS 05/31/24 05/31/24 History [Tylenol PM 500-25mg] amLODIPine [Norvasc] 10 mg PO HS 05/31/24 05/31/24 History Allergies Allergy/AdvReac Type Severity Reaction Status Date / Time No Known Allergies Allergy Verified 06/07/24 12:22 Surgical - Exam Vital Signs Temp Pulse Resp BP Pulse Ox 97.8 F 64 16 130/78 96 06/07/24 12:29 06/07/24 12:29 06/07/24 12:29 06/07/24 12:29 06/07/24 12:29 Physical exam: General: Well-developed, well-nourished HEENT: Normocephalic, sclerae nonicteric Abdomen: Nontender, nondistended Extremities: No edema Neuro: Alert and oriented Assessment and Plan (1) Cancer of colon Narrative/Plan: Will proceed with colonoscopy at this time. Current Visit: No Status: Acute Code(s): C18.9 - MALIGNANT NEOPLASM OF COLON, UNSPECIFIED SNOMED Code(s): 714078160
--- NOTE | 2024-06-07 13:18 | P.PCN ---
Date of Procedure: 06/07/24 Procedure(s) Performed: PREOPERATIVE DIAGNOSIS: History of colon cancer POSTOPERATIVE DIAGNOSIS: Diverticulosis PROCEDURE: Colonoscopy ANESTHESIA: MAC SURGEON: Miguel Newton M.D. SPECIMENS: None ENDOSCOPIC PROCEDURE: The patient was placed on the endoscopy table in the left decubitus position. The Olympus colonoscope was inserted into the anus and passed under direct visualization to the ileocolonic anastomosis. From that point the scope was withdrawn inspecting all surfaces carefully. There were no neoplastic inflammatory or polypoid lesions throughout the transverse, descending, sigmoid and rectum. There was mild left-sided diverticulosis noted. The patient's prep was slightly suboptimal. Digital rectal examination was normal. The patient was taken to the recovery room in stable condition per anesthesia guidelines. RECOMMENDATIONS: Resume diet. Repeat colonoscopy 3 years.
[2024-06-07 13:39] VITALS: BP 133/81; PULSE 59
== END 2024-06-07 14:00 | disposition home or self-care (01) ==
LOC: ORWHC2ENDO 12:02
PROVIDERS: ATTEND Surgery
DX: K57.30 Diverticulosis of large intestine without perforation or abscess without bleeding (principal); E78.5 Hyperlipidemia, unspecified; I10 Essential (primary) hypertension; Z87.891 Personal history of nicotine dependence; Z90.49 Acquired absence of other specified parts of digestive tract; Z85.038 Personal history of other malignant neoplasm of large intestine; Z79.899 Other long term (current) drug therapy; Z90.89 Acquired absence of other organs

== ENCOUNTER → 2024-10-11 | Outpatient (CLI) | payer MEDICARE ==
[2024-10-11 10:21] LABS: African American GFR (CKD) 72 (>60 ml/min/1.73 sqM); Blood Urea Nitrogen 18 mg/dL (9-20); Non-African American GFR(CKD) 62 (>60 ml/min/1.73 sqM)
--- NOTE | 2024-10-11 14:08 | CT ---
EXAMINATION TYPE: CT ChestAbdPelvis w con DATE OF EXAM: 10/11/2024 COMPARISON: Most recent prior CT October 12, 2023 and older studies throughout May 10, 2020 HISTORY: f/u colon ca CT DLP: 1493 mGycm. Automated Exposure Control for Dose Reduction was Utilized. CONTRAST: CT scan of the thorax, abdomen and pelvis is performed with oral with IV Contrast, patient injected with 100 mL of Isovue 300. FINDINGS: LUNGS: The lungs remain grossly clear, there is no concerning new mass or focal consolidation identif ied. There is no pleural effusion or pneumothorax seen. The tracheobronchial tree is patent. MEDIASTINUM: There are stable prominent but subcentimeter mediastinal lymph nodes. No cardiomegaly or pericardial effusion is seen. Coronary artery calcification is redemonstrated. LIVER/GB: Approximate 4 mm low dense lesion right hepatic lobe axial image 53 is stable and presumed benign. No new intrahepatic lesions. PANCREAS: No significant abnormality is seen. SPLEEN: No significant abnormality is seen. ADRENALS: No significant abnormality is seen. KIDNEYS: Extrarenal pelvises bilaterally redemonstrated. Symmetric cortical medullary uptake and excr etion. Some simple appearing parapelvic cysts centrally and anteriorly mid to lower pole of the left kidney redemonstrated. Circumaortic left renal vein which is normal variant. BOWEL: No suspicious small or large bowel dilatation. Surgical changes from partial proximal colectom y and small bowel anastomosis redemonstrated in the right abdomen. Oral contrast reaches the rectum. Genital structures: Enlarged prostate consistent with BPH redemonstrated LYMPH NODES: No new greater than 1 cm abdominal lymph nodes are appreciated. OSSEOUS STRUCTURES: Moderate to severe disc space narrowing with endplate sclerosis L1-L2 level redem onstrated. Grade 1 retrolisthesis L2 on L3 with moderate spurring and disc space narrowing is redemon strated. Moderate to advanced disc space narrowing L4-L5 level redemonstrated Advanced disc space candi rowing lumbosacral junction is again seen. OTHER: Stable size Small fat-containing umbilical hernia. Stable small fat-containing left inguinal h ernia. IMPRESSION: No suspicious new mass or adenopathy to suggest active neoplastic recurrence. No signifi cant change from most recent prior CTs. [facility], , 10/11/2024 2:05 PM
== END | disposition home or self-care (01) ==
LOC: RADCTMAIN 09:31
PROVIDERS: ATTEND Internal Medicine Hematology & Oncology
DX: C18.2 Malignant neoplasm of ascending colon (principal); I10 Essential (primary) hypertension; E78.5 Hyperlipidemia, unspecified; Z71.3 Dietary counseling and surveillance; K40.90 Unilateral inguinal hernia, without obstruction or gangrene, not specified as recurrent; N40.0 Benign prostatic hyperplasia without lower urinary tract symptoms; N28.1 Cyst of kidney, acquired
CPT/HCPCS: 82565; 84520; 71260; 74177; 36415; Q9967